=== PATIENT | male | born 1975 | race Caucasian/White ===

== ENCOUNTER 2025-05-15 07:57 | Outpatient (AMB) | payer BC, SELFPAY ==
--- NOTE | 2025-05-15 08:12 | MHC.PC.OV ---
Vital Signs 05/15/25 08:13 Height 6 ft Weight 210 lb BMI 28.5 BP 124/82 Blood Pressure Location Rt brachial Position Sitting Respiration 17 Pulse 88 Pulse Source Pulse Oximeter Temp 97.9 F Temp Source Oral Pulse Oximetry (%) 98 Oxygen Delivery Method Room Air Intake Visit Reasons: [employer]-ok with [employer] Intake Note: Pt is here today for a New patient visit PE. 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 Pt reports episodes of infrequent bowel movements follow-up explosive diarrhea on and off for few months. Patient denies abdominal pain change in his diet or physical activity hematochezia or melena. Pt c/o chronic LBP occasionally radiating to LLE on and off for 10 years. Patient lives heavy objects occasionally at work. Patient denies saddle numbness, weakness or numbness in extremities. 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 1. Little interest or pleasure in doing things: not at all 2. Feeling down, depressed, or hopeless: not at all 3. Trouble falling or staying asleep, or sleeping too much: several days 4. Feeling tired or having little energy: nearly every day 5. Poor appetite or overeating: several days 6. Feeling bad about yourself - or that you are a failure or have let yourself or your family down: not at all 7. Trouble concentrating on things, such as reading the newspaper or watching television: not at all 8. Moving or speaking so slowly that other people could have noticed. Or the opposite - being so fidgety or restless that you have been moving around a lot more than usual: not at all 9. Thoughts that you would be better off or of hurting yourself in some way: not at all Total score: 5 Depression Screening Interpretation: Negative Depression Screening Done: Yes 31438 - PHQ-9 Billing: Yes Source: Developed by Drs. Elliott Jang, Nicole Mcghee, Rashid Castillo and colleagues, with an educational rosalia from [employer]. Thrive Questionnaire Date Thrive assessed: 05/15/25 I am a: Patient What is your living situation today?: I have a steady place to live Within the past 12 months, did the food you bought not last and you didn't have the money to get more?: Never true Within the past 12 months, did you worry whether your food would run out before you got money to buy more?: Never true Do you have trouble paying for medicines?: No Do you have trouble getting transportation to medical appointments?: No Do you have trouble paying your heating and electricity bill?: No Do you have trouble taking care of your child, family member or friend?: No Do you have trouble with day-to-day activities such as bathing, preparing meals, shopping, managing finances, etc.?: No Are you currently unemployed and looking for a job?: No Are you interested in more education?: No Please select the resources that you would like help with: None Currently or been in a relationship where the following occur: No concerns reported THRIVE Score: 0 AUDIT C Alcohol Use Questionnaire (AUDIT-C) 1. How often do you have a drink containing alcohol?: 2-4 times a month 2. How many drinks containing alcohol do you have on a typical day when you are drinking?: 3 or 4 3. How often do you have six or more drinks on one occasion?: Never Total Score: 3 MAGAN-7 AMB Questionnaire MAGAN-7 Date MAGAN - 7 assessed: 05/15/25 Feeling nervous, anxious, or on edge: 0 = Not at all Not being able to stop or control worryin = Not at all Worrying too much about different things: 0 = Not at all Trouble relaxin = Not at all Being so restless that it is hard to sit still: 0 = Not at all Becoming easily annoyed or irritable: 0 = Not at all Feeling afraid as if something awful might happen: 0 = Not at all Total MAGAN-7 score (0-4 normal; 5-9 mild; 10-14 moderate; 15-21 severe): 0 Source: Developed by Drs. Elliott Jang, Nicole Mcghee, Rashid Castillo and colleagues, with an educational rosalia from [employer]. MAGAN-7 Assessment Billing MAGAN-7 Assessment Tool: MAGAN-7 Assessment 84195 Review of Systems Const All systems reviewed & are unremarkable except as noted in HPI and below Eyes Reports no additional complaints ENT Reports no additional complaints Card Reports no additional complaints Resp Reports no additional complaints GI Reports no additional complaints Reports no additional complaints Physical exam (Primary Care) Vital Signs: Last Vital Signs Temp 97.9 F 05/15/25 08:13 Pulse 88 05/15/25 08:13 Resp 17 05/15/25 08:13 BP 124/82 05/15/25 08:13 Pulse Ox 98 05/15/25 08:13 Oxygen Delivery Method Room Air 05/15/25 08:13 BMI result Body Mass Index 28.5 Tobacco/Smoking Status: Tobacco use Status Tobacco use date assessed 05/15/25 05/15/25 08:21 Patient Tobacco Use Status Never used Tobacco 05/15/25 08:21 e-Cigarette/Vaping Use Never Used 05/15/25 08:21 PHQ-9: PHQ-9 Score PHQ-9: Total score 5 05/15/25 08:21 Depression Screening Interpretation: Negative Thrive Assessment: Date of Thrive Assessment Date Thrive assessed 05/15/25 05/15/25 08:21 Currently or been in a relationship where the following occur: No concerns reported Const General: no acute distress HENMT Head: Yes normal to inspection Ears: hearing grossly normal bilaterally Face and sinus: Yes normal facial exam Mouth: Normal oral and palatal mucosa present Throat: Yes posterior oropharynx normal Eyes General: appearance normal, both eyes and all related structures Neck Neck: Yes no lymphadenopathy and Yes supple Resp Effort & Inspection: normal respiratory effort Auscultation: clear to auscultation bilaterally Cardio Rhythm: regular rhythm Heart sounds: S1 normal heart sound present and S2 normal heart sound present GI Inspection: Yes normal to inspection Palpation (GI): Soft to palpation Percussion: Yes normal to percussion Auscultation: normal bowel sounds Back/Spine/Pelvis Other: Decreased range of motion in lumbar spine, paraspinal tenderness left more than right, straight leg rising 90 degrees bilaterally, deep tendon reflexes 2+ bilaterally Coding Level of Care Code New Pt Prev Care 40-64y(25635) Diagnoses Lower back pain M54.50 Constipation K59.00 Annual physical exam Z00.00 Additional Codes MAGAN-7 Assessment Billing - MAGAN-7 Assessment Tool: MAGAN-7 Assessment 83548 ([id number]) PHQ-9 - 46861 - PHQ-9 Billing: Yes ([id number]) Assessment & Plan Assessment & Plan (1) Lower back pain: Code(s): M54.50 - Low back pain, unspecified Category: Medical Plan: For chronic lower back pain with sciatica x-ray of lumbar spine will be obtained patient will schedule an appointment for physical therapy in [place] (2) Constipation: Code(s): K59.00 - Constipation, unspecified Category: Medical Plan: For chronic constipation patient was advised to increase fluids and fiber intake and try Metamucil daily. Cologuard will be checked. Patient will follow-up in 2 months (3) Annual physical exam: Code(s): Z00.00 - Encounter for general adult medical examination without abnormal findings Category: Medical Plan: Well-balanced diet regular physical activity discussed with the patient. Patient will follow-up in 2 months to recheck blood pressure and discussed results of the blood work Orders: Orders Comprehensive [place]. Panel Fast Today Z00.00 - Encounter for general adult medical examination without abnormal findings Complete Blood Count Auto Diff Today Z00.00 - Encounter for general adult medical examination without abnormal findings UA w Microscopic Today Z00.00 - Encounter for general adult medical examination without abnormal findings PT Evaluation and Treatment Today M54.50 - Low back pain, unspecified Lipid Panel Today Z00.00 - Encounter for general adult medical examination without abnormal findings PSA,Total (Free>4and<10) Today Z00.00 - Encounter for general adult medical examination without abnormal findings XR lumbar spine 2-3V Today M54.50 - Low back pain, unspecified Referrals Cologuard Test Z12.11 - Encounter for screening for malignant neoplasm of colon, Z12.12 - Encounter for screening for malignant neoplasm of rectum
[2025-05-15 08:13] VITALS: BP 124/82; PULSE 88; RESP 17; TEMP 36.6; O2SAT 98; BMI 28.5
== END 2025-05-15 09:01 | disposition home or self-care (01) ==
PROVIDERS: Visit Provider Internal Medicine
DX: Z00.00 Encounter for general adult medical examination without abnormal findings (principal); M54.50 Low back pain, unspecified; K59.00 Constipation, unspecified

== ENCOUNTER 2025-05-15 07:57 | Outpatient (REF) | payer BC, SELFPAY ==
--- NOTE | ~2025-05-15 | XR_ITS ---
EXAMINATION: XR LUMBOSACRAL SPINE CLINICAL INFORMATION: M54.50 - Low back pain, unspecified COMPARISON: None available. TECHNIQUE: Three views of the lumbosacral spine. FINDINGS: Bone alignment is normal. No fracture or dislocation. Mild degenerative spondylosis at L3-4 and L4-5. Normal disc spaces. Normal paraspinal soft tissues. XR/XR lumbar spine 2-3V IMPRESSION: Mild degenerative spondylosis at L3-4 and L4-5. Electronically signed by: Tonya Chen MD 05/15/2025 10:17 AM EDT
[2025-05-15 13:20] LABS: MANUAL DIFF FLAG NO
[2025-05-15 13:37] LABS: Hematocrit 46.5 % (42.0-52.0); Hemoglobin 15.5 g/dl (14.0-18.0); Imm Gran Abs Auto 0.01 X10*3/uL (0.00-0.03); Imm Gran Pct Auto 0.2 % (0.0-0.4); Lymphocytes Absolute Auto 1.4 X10*3/uL (1.2-4.9); Mean Corpuscular HGB Conc 33.3 g/dl (31.0-36.0); Mean Corpuscular Hemoglobin 30.4 pg (27.0-33.0); Mean Corpuscular Volume 91.2 fL (80.0-98.0); NRBC Abs Auto 0.000 X10*3/uL (0.0-0.012); NRBC Pct Auto 0.0 /100WBC (0.0-0.2); Platelet Count 255 X10*3/uL (160-400); Red Blood Count 5.10 X10*6/uL (4.60-5.80); White Blood Count 5.1 X10*3/uL (4.8-10.8)
[2025-05-15 13:48] LABS: Appearance Urine Clear; Glucose Urine UA Negative (Negative); PH 6.0 (5.0-9.0); Specific Gravity - Urine 1.020 (1.005-1.025)
[2025-05-15 14:27] LABS: Alanine Aminotransferase 62 U/L (0-40); Albumin Level 4.9 g/dL (3.5-5.0); Alkaline Phosphatase 68 U/L (39-117); Anion Gap 9 (12-20); Aspartate Amino Transferase 36 U/L (5-37); Blood Urea Nitrogen 20 mg/dL (9-16); Calcium 9.7 mg/dL (8.4-10.2); Carbon Dioxide 31 mmol/L (22-29); Chloride 107 mmol/L (96-108); Cholesterol 235 mg/dL (<200); Estimated Glomerular Filt Rate > 60; HDL Cholesterol 45 mg/dL (>40); Potassium 4.5 mmol/L (3.3-5.1); Sodium 142 mmol/L (135-145); Total Protein 7.8 g/dL (6.5-8.0); Triglycerides 324 mg/dL (<150)
[2025-05-15 15:02] LABS: PSA,Total (Free>4and<10) 0.48 ng/mL (0.00-4.00)
== END 2025-05-15 07:58 | disposition home or self-care (01) ==
LOC: HO.HMGCX 07:57
PROVIDERS: PCP Internal Medicine; Visit Provider Internal Medicine
DX: Z00.00 Encounter for general adult medical examination without abnormal findings (principal); M54.50 Low back pain, unspecified; R19.7 Diarrhea, unspecified; K59.00 Constipation, unspecified; Z12.5 Encounter for screening for malignant neoplasm of prostate
CPT/HCPCS: 36415; 72100; 80053; 80061; 81001; 84153; 85025; 96127

== ENCOUNTER → 2025-05-15 10:02 | Outpatient (BNV) | payer BC, SELFPAY | PROVIDERS: PCP Internal Medicine; Visit Provider Radiology Diagnostic Radiology | DX: M47.816 Spondylosis without myelopathy or radiculopathy, lumbar region (principal) | CPT/HCPCS: 72100 ==

== ENCOUNTER 2025-07-22 09:01 | Outpatient (AMB) | payer BC, SELFPAY ==
[2025-07-22 09:04] VITALS: BP 126/84; PULSE 91; RESP 16; TEMP 36.6; O2SAT 96; BMI 28.5
--- NOTE | 2025-07-22 09:04 | A.OFFPC_ITS ---
Vital Signs 07/22/25 09:04 Height 6 ft Weight 210 lb BMI 28.5 BP 126/84 Blood Pressure Location Lt brachial Position Sitting Respiration 16 Pulse 91 Pulse Source Pulse Oximeter Temp 97.8 F Temp Source Oral Pulse Oximetry (%) 96 Oxygen Delivery Method Room Air Intake Visit Reasons: 2 mo follow up Intake Note: Pt is here today for 2 months follow up visit. Allergies No Known Allergies Allergy (Verified 07/22/25 09:06) Medication List - Last Reconciled 07/22/25 by Mavis Evans MD No Known Home Meds Tobacco use date assessed: 07/22/25 Dental Screening Dental Screen Date: 05/15/25 HPI 2 mo follow up HPI Details Pt presents for f/u. He reports improved chronic diarrhea/constipation symptoms since patient has been eating well-balanced diet and taking fiber supplement. He has been following low-cholesterol diet for the last few weeks. 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 Tobacco Use Status: Never used Tobacco e-Cigarette/Vaping Use: Never Used service: No Current occupational status: employed Cognitive needs: No Hearing needs: No Vision needs: Yes Questionnaire Thrive Questionnaire Date Thrive assessed: 05/12/25 I am a: Patient What is your living situation today?: I have a steady place to live Within the past 12 months, did the food you bought not last and you didn't have the money to get more?: Never true Within the past 12 months, did you worry whether your food would run out before you got money to buy more?: Never true Do you have trouble paying for medicines?: No Do you have trouble getting transportation to medical appointments?: No Do you have trouble paying your heating and electricity bill?: No Do you have trouble taking care of your child, family member or friend?: No Do you have trouble with day-to-day activities such as bathing, preparing meals, shopping, managing finances, etc.?: No Are you currently unemployed and looking for a job?: No Are you interested in more education?: No Currently or been in a relationship where the following occur: No concerns reported THRIVE Score: 0 MAGAN-7 AMB Questionnaire MAGAN-7 Date MAGAN - 7 assessed: 05/15/25 Source: Developed by Drs. Elliott Jang, Nicole Mcghee, Rashid Castillo and colleagues, with an educational rosalia from [employer]. Review of Systems Const All systems reviewed & are unremarkable except as noted in HPI and below Eyes Reports no additional complaints ENT Reports no additional complaints Card Reports no additional complaints Resp Reports no additional complaints GI Reports no additional complaints Physical exam (Primary Care) Vital Signs: Last Vital Signs Temp 97.8 F 07/22/25 09:04 Pulse 91 07/22/25 09:04 Resp 16 07/22/25 09:04 BP 126/84 07/22/25 09:04 Pulse Ox 96 07/22/25 09:04 Oxygen Delivery Method Room Air 07/22/25 09:04 BMI result Body Mass Index 28.5 Tobacco/Smoking Status: Tobacco use Status Tobacco use date assessed 07/22/25 07/22/25 09:06 Patient Tobacco Use Status Never used Tobacco 07/22/25 09:04 e-Cigarette/Vaping Use Never Used 07/22/25 09:04 Thrive Assessment: Date of Thrive Assessment Date Thrive assessed 05/12/25 07/22/25 09:04 Currently or been in a relationship where the following occur: No concerns reported Const General: no acute distress HENMT Head: Yes normal to inspection Face and sinus: Yes normal facial exam Resp Effort & Inspection: normal respiratory effort Auscultation: clear to auscultation bilaterally Cardio Rhythm: regular rhythm Heart sounds: S1 normal heart sound present and S2 normal heart sound present GI Inspection: Yes normal to inspection Palpation (GI): Soft to palpation Percussion: Yes normal to percussion Auscultation: normal bowel sounds Coding Level of Care Code Est Pt Level 4 (70765) Diagnoses Hyperlipidemia E78.5 Positive colorectal cancer screening using Cologuard test R19.5 Lower back pain M54.50 Assessment & Plan Assessment & Plan (1) Hyperlipidemia: Code(s): E78.5 - Hyperlipidemia, unspecified Category: Medical Plan: Low-cholesterol diet, increase physical activity fish oil supplement discussed with the patient follow-up in 4 months with a fasting labs before (2) Positive colorectal cancer screening using Cologuard test: Comment: 05/2025, referred to Dr. Tariq Code(s): R19.5 - Other fecal abnormalities Category: Medical Plan: Patient has an appointment with GI next year (3) Lower back pain: Comment: will see chiropractor Code(s): M54.50 - Low back pain, unspecified Category: Medical Plan: Patient will start chiropractor care Orders: Orders Lipid Panel 4 Months E78.5 - Hyperlipidemia, unspecified Comprehensive [place]. Panel Fast 4 Months Z00.00 - Encounter for general adult medical examination without abnormal findings
== END 2025-07-22 10:46 | disposition home or self-care (01) ==
LOC: HO.HMCC 09:02
PROVIDERS: PCP Internal Medicine; Visit Provider Internal Medicine
DX: E78.5 Hyperlipidemia, unspecified (principal); R19.5 Other fecal abnormalities; M54.50 Low back pain, unspecified